=== PATIENT | female | born 1945 | race Caucasian/White ===

== ENCOUNTER 2021-04-04 13:00 | Outpatient (RCR) | payer MEDICARE, SELFPAY | END 2021-07-01 10:03 | disposition home or self-care (01) | LOC: HO.PTWFD 13:00 | PROVIDERS: PCP Family Medicine; Visit Provider Physician Assistant | DX: M70.62 Trochanteric bursitis, left hip (principal) | CPT/HCPCS: 97110; 97140; 97150; 97162; 97535 ==